=== PATIENT | female | born 1990 | race Caucasian/White ===

== ENCOUNTER 2021-01-25 13:55 | Emergency (ER) | payer BC ==
[~2021-01-25] VITALS: Ht 162.6 cm; Wt 56.0 kg
[2021-01-25 14:42] LABS: BASOPHILS % 0.5 % (0.0-2.0); EOSINOPHILS % 0.5 % (0.0-5.0); HEMATOCRIT. 36.4 % (36.0-48.0); HEMOGLOBIN. 12.3 g/dL (12.0-16.0); LYMPHOCYTES % 24.2 % (20.0-50.0); MEAN CORPUSCULAR HEMOGLOBIN 28.3 pg (28.0-32.0); MEAN CORPUSCULAR VOLUME 83.8 fL (81.0-99.0); MEAN PLATELET VOLUME 8.6 fl (7.4-10.4); MONOCYTES % 5.8 % (2.0-8.0); PLATELET 304 x1000/uL (130-400); RED BLOOD CELL COUNT 4.35 mill/uL (4.2-5.4)
[2021-01-25 14:43] LABS: CHLORIDE 110 mEq/L (98-107)
[2021-01-25 14:57] LABS: HCG SCREEN NEGATIVE
[2021-01-25] MEDS ORDERED: PROCHLORPERAZINE 10MG/2ML VIAL IV ONE (15:30)
[2021-01-25] MEDS ORDERED: MAGNESIUM 2 G PREMIX 50 ML IV ONE (15:30)
[2021-01-25 16:12] LABS: CLARITY URINE CLEAR (CLEAR); COLOR URINE YELLOW (YELLOW); KETONES URINE NEGATIVE (NEGATIVE); LEUKOCYTE ESTERASE URINE NEGATIVE (NEGATIVE); NITRITE URINE NEGATIVE (NEGATIVE); OCCULT BLOOD URINE NEGATIVE (NEGATIVE); PROTEIN URINE NEGATIVE (NEGATIVE); SPECIFIC GRAVITY URINE 1.005 (1.005-1.030); UROBILINOGEN URINE 0.2 E.U./dL (0.2-1.0)
[2021-01-25] MEDS ORDERED: IOHEXOL-350 100 ML BOTTLE ONE (17:28)
[2021-01-25 18:58] VITALS: BP 101/73
== END 2021-01-25 19:00 | disposition home or self-care (01) ==
LOC: ER 13:55
DX: R20.0 Anesthesia of skin (principal); R07.89 Other chest pain
CPT/HCPCS: 36415; 70450; 70496; 70498; 71045; 80053; 81003; 81025; 82962; 84484; 84703; 85025; 93005; 96365; 96366; 96375; 99285; J0780; J3475; Q9967